=== PATIENT | female | born 1985 | race Caucasian/White ===

== ENCOUNTER 2016-10-02 12:57 | Emergency (ER) | payer OTHER ==
[2016-10-02 14:20] VITALS: BP 138/84
--- NOTE | 2016-10-02 14:51 | UC ---
Respiratory Complaint HPI - HPI Summary HPI Summary: 30 year old female presents for sinus congestion, sinus headache, and fatigue x 2 days. Patient denies cough, fever like symptoms, G.I. symptoms or rash. Patient states around New Years that she developed a post-nasal drip, nasal congestion and sore throat which has yet to resolve. - History of Current Complaint Chief Complaint: UCRespiratory Stated Complaint: SINUS COMPLAINT Time Seen by Provider: 10/02/16 14:37 Hx Obtained From: Patient Hx Last Menstrual Period: 08/30/17 until 09/28/16 ?: No Onset/Duration: Gradual Onset Timing: Constant Severity Initially: Mild Severity Currently: Severe Aggravating Factors: Nothing Associated Signs And Symptoms: Positive: Sinus Discomfort. Negative: Dyspnea, Fever, Chills, Pleuritic Chest Pain, Wheezing, Hemoptysis, Dizziness, Nasal Congestion - Risk Factors Pulmonary Embolism Risk Factors: Smoking Cardiac Risk Factors: Negative Pseudomonas Risk Factors: Negative Tuberculosis Risk Factors: Negative - Allergies/Home Medications Allergies/Adverse Reactions: Allergies Allergy/AdvReac Type Severity Reaction Status Date / Time Azithromycin [From Zithromax] Allergy Pain Verified 10/02/16 14:20 Home Medications: Home Medications Dextromethorphan-Phenylephrine [Theraflu Severe Cold Dayt] 1 dose PO TID PRN 06/10 [History Confirmed 10/02/16] Menthol (Mouth-Throat) [Cepacol Sore Throat] 5.4 mg MT BID PRN 10/02/16 [ History Confirmed 10/02/16] [id number]-Toagpslicvvsw-Lu [Tylenol Sinus Congestion 5-325-200 mg] 1 dose PO Q4HR PRN 10/02/16 [History Confirmed 10/02/16] PMH/Surg Hx/FS Hx/Imm Hx Previously Healthy: Yes Endocrine History Of: Denies: Diabetes, Thyroid Disease, Hyperthyroidism, Hypothyroidism, Dyslipidemia Cardiovascular History Of: Denies: Cardiac Disorders, Hypertension, Pacemaker/ICD, Myocardial Infarction , Congestive Heart Failure, Atrial Fibrillation, Deep Vein Thrombosis, Bleeding Disorders Respiratory History Of: Denies: COPD, Asthma, Bronchitis, Pneumonia, Pulmonary Embolism GI/ History Of: Denies: Gastroesophageal Reflux, Ulcer, Gastrointestinal Bleed, Gall Bladder Disease, Kidney Stones, Diverticulitis, Renal Disease, Urosepsis Neurological History Of: Denies: TIA, CVA, Dementia, Seizures, Migraine Psychological History Of: Denies: Anxiety, Depression, Bipolar Disorder, Schizophrenia, Post Traumatic Stress Disorder - Surgical History Surgical History: Yes Surgery Procedure, Year, and Place: Tubes in both ears as a child., laparoscopic surgery-06/22/16 - Family History Known Family History: Positive: Cardiac Disease, Hypertension - Social History Occupation: Employed Full-time - [employer] Lives: With Family Alcohol Use: Occasionally Substance Use Type: None Smoking Status (MU): Light Every Day Tobacco Smoker Type: Cigarettes Amount Used/How Often: less than 1/2 pack Length of Time of Smoking/Using Tobacco: 6 years Have You Smoked in the Last Year: No When Did the Patient Quit Smoking/Using Tobacco: 2011 Household Exposure Type: Cigarettes Review of Systems Constitutional: Fatigue Skin: Negative Eyes: Negative ENT: Nasal Discharge Respiratory: Negative Cardiovascular: Negative Gastrointestinal: Negative Genitourinary: Negative Motor: Negative Neurovascular: Negative Musculoskeletal: Negative Neurological: Negative Psychological: Negative All Other Systems Reviewed And Are Negative: Yes Physical Exam Triage Information Reviewed: Yes Appearance: Well-Appearing Vital Signs: Initial Vital Signs Temp 98.5 F 10/02/16 14:11 Pulse 81 10/02/16 14:11 Resp 18 10/02/16 14:11 BP 138/84 10/02/16 14:11 Pulse Ox 100 10/02/16 14:11 Vital Signs Reviewed: Yes Eye Exam: Normal Eyes: Positive: Conjunctiva Clear ENT Exam: Normal ENT: Positive: Other: - Erythema and slightly inflammed nasal turbinates. Dental Exam: Normal Neck exam: Normal Neck: Positive: Supple, Nontender, No Lymphadenopathy Respiratory Exam: Normal Respiratory: Positive: Chest non-tender, Lungs clear, Normal breath sounds Cardiovascular Exam: Normal Cardiovascular: Positive: RRR, No Murmur, Pulses Normal Abdominal Exam: Normal Abdomen Description: Positive: Nontender Bowel Sounds: Positive: Present Musculoskeletal Exam: Normal Neurological Exam: Normal Neurological: Positive: Alert Psychological Exam: Normal Skin Exam: Normal UC Diagnostic Evaluation - Laboratory O2 Sat by Pulse Oximetry: 100 Respiratory Course/Dx - Differential Dx/Diagnosis Provider Diagnoses: Sinusitis Discharge - Discharge Plan Condition: Stable Disposition: HOME Prescriptions: Amoxicillin CAP* 1,000 mg PO Q12H #20 cap Patient Education Materials: Sinusitis (ED) Referrals: Christianne Muse MD [Primary Care Provider] -
== END 2016-10-02 15:06 | disposition home or self-care (01) ==
LOC: UCCORT 12:57
DX: J32.9 Chronic sinusitis, unspecified (principal); Z88.1 Allergy status to other antibiotic agents; Z87.891 Personal history of nicotine dependence
CPT/HCPCS: 99212; G0463

== ENCOUNTER 2019-08-18 14:12 | Emergency (ER) | payer OTHER ==
[2019-08-18 14:33] VITALS: BP 156/96
--- NOTE | 2019-08-18 15:12 | UC ---
Dental HPI - HPI Summary HPI Summary: 33 yo WM p/w right lower mandibular pain and swelling associated with broken tooth on the right lower lateral incisor,started with swelling and tooth pain and progressive swelling on the right lower mandible. Denies f/c - History of Current Complaint Chief Complaint: UCDentalProblem Stated Complaint: DENTAL,RT SIDE FACIAL SWELLING Time Seen by Provider: 08/18/19 14:31 Hx Obtained From: Patient Hx From Patient Unobtainable Due To: Other Hx Last Menstrual Period: Mirana ?: No Onset/Duration: Sudden Onset Severity: Severe Pain Intensity: 8 - Allergies/Home Medications Allergies/Adverse Reactions: Allergies Allergy/AdvReac Type Severity Reaction Status Date / Time azithromycin [From Zithromax] Allergy Pain Verified 08/18/19 14:34 Home Medications: Home Medications Amphetamine/Dextroamph ER(NF) [Adderal XR (NF)] 30 mg PO DAILY 08/18/19 [ History Confirmed 08/18/19] Fluoxetine HCl [Prozac] 40 mg PO DAILY 08/18/19 [History Confirmed 08/18/19] PMH/Surg Hx/FS Hx/Imm Hx - Surgical History Surgical History: Yes Surgery Procedure, Year, and Place: Tubes in both ears as a child., laparoscopic surgery-06/22/16 - Family History Known Family History: Positive: Cardiac Disease, Hypertension - Social History Alcohol Use: Occasionally Substance Use Type: None Smoking Status (MU): Light Every Day Tobacco Smoker Type: Cigarettes Amount Used/How Often: less than 1/2 pack Length of Time of Smoking/Using Tobacco: 6 years Have You Smoked in the Last Year: No When Did the Patient Quit Smoking/Using Tobacco: 2011 Household Exposure Type: Cigarettes Review of Systems All Other Systems Reviewed And Are Negative: Yes Constitutional: Positive: Negative Eyes: Positive: Negative ENT: Positive: Dental Pain Respiratory: Positive: Negative Cardiovascular: Positive: Negative Gastrointestinal: Positive: Negative Genitourinary: Positive: Negative Neurovascular: Positive: Negative Musculoskeletal: Positive: Negative Physical Exam - Summary Physical Exam Summary: Appearance: Positive: No Pain Distress Skin: Positive: Warm Head/Face: Positive: Normal Head/Face Inspection Eyes: :Normal ENT: right lower mandibular swelling, broken brown tooth right lower lateral incisor wiht periapical and melecio-gingival swelling Neck: Positive: Supple Respiratory/Lung Sounds: Positive: Clear to Auscultation. Cardiovascular: Positive: Normal, RRR, S1, S2 Abdomen : soft, NT/ND Musculoskeletal: Positive: Normal, Strength/ROM Intact Neurological: Positive: CN 2-12 grossly intact Triage Information Reviewed: Yes Vital Signs: Initial Vital Signs Temp 37.3 C 08/18/19 14:28 Pulse 110 08/18/19 14:28 Resp 16 08/18/19 14:28 BP 156/96 08/18/19 14:28 Pulse Ox 100 08/18/19 14:28 Dental Complaint Course/Dx - Differential Dx/Diagnosis Differential Diagnosis/Dx: Dental Abscess, Dental Caries, Fractured Tooth, Gingivitis, Odontogenic Pain Provider Diagnosis: Dental abscess Discharge ED - Sign-Out/Discharge Documenting (check all that apply): Patient Departure All imaging exams completed and their final reports reviewed: No Studies - Discharge Plan Condition: Stable Disposition: HOME Prescriptions: Clindamycin HCl 300 mg PO Q6HR 10 Days #40 capsule Patient Education Materials: Dental Abscess (ED) Referrals: Dayron Maldonado PA [Primary Care Provider] - Additional Instructions: Please follow up with your dentist as soon as possible. - Billing Disposition and Condition Condition: STABLE Disposition: Home
== END 2019-08-18 15:26 | disposition home or self-care (01) ==
LOC: UCCORT 14:12
DX: K04.7 Periapical abscess without sinus (principal); F17.210 Nicotine dependence, cigarettes, uncomplicated; Z88.1 Allergy status to other antibiotic agents
CPT/HCPCS: 99212; G0463